=== PATIENT | male | born 1980 | race Caucasian/White ===

== ENCOUNTER 2019-12-07 21:48 | Emergency (ER) | payer SELFPAY ==
[~2019-12-07] VITALS: Ht 170.2 cm; Wt 102.5 kg
--- NOTE | 2019-12-07 22:03 | NUR ---
PT IS IN ROOM #4B. DR [place] EVALUATED THE PT.
--- NOTE | 2019-12-07 22:26 | NUR ---
PT WAS D/C'd TO HOME. D/C INSTRUCTIONS GIVEN TO THE PT.
[2019-12-07 22:27] VITALS: BP 128/81
== END 2019-12-07 22:28 | disposition home or self-care (01) ==
LOC: EDBD 21:50 → ER 21:50
DX: R05 Cough (principal); R07.89 Other chest pain
CPT/HCPCS: 71045; 93005; A4663